=== PATIENT | male | born 1985 | race Caucasian/White ===

== ENCOUNTER 2023-04-23 17:50 | Emergency (ER) | payer BC, SELFPAY ==
[2023-04-23] VITALS (12 sets, daily range): BP systolic 126–166; BP diastolic 84–90; PULSE 88–106; RESP 13–23; TEMP 36.6; O2SAT 97–100
--- NOTE | 2023-04-23 19:21 | PC.NURSE ---
This RN took patient report from MITUL Mahoney. This RN assumed care of patient.
--- NOTE | 2023-04-23 19:57 | ED.ALLEREA ---
HPI - Allergic Reaction General Chief complaint: Allergic Reaction Stated complaint: hives Time Seen by Provider: 04/23/23 19:51 Source: patient and family Mode of arrival: ambulatory Limitations: no limitations History of Present Illness HPI narrative: 37 years old white male came to the ED with itching hives started in the morning, gets better with Benadryl then back again. Last Benadryl was 6 hours ago. History of intermittent skin rash of unknown etiology. 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 He denies any difficulty breathing or swallowing. Related Data Allergies Allergy/AdvReac Type Severity Reaction Status Date / Time No Known Allergies Allergy Verified 04/23/23 18:19 Review of Systems Review of Systems: All systems reviewed & are unremarkable except as noted in HPI and below Exam Narrative: General appearance: Well-developed, well-nourished Skin: Hives, scattered follow-up Head: Normocephalic, nontraumatic Eyes: Clear conjunctiva ENT: Oropharynx normal, ears normal, nose normal Neck: Supple, nontender Chest and respiratory: Airway patent, no respiratory distress, no accessory muscle use Heart: Regular rate/rhythm Abdomen: Soft, nontender, no organomegaly, quiet bowel sounds Vascular: Normal peripheral pulses, normal capillary refill. Musculoskeletal: Normal range of motion, nontender back Neurologic: Alert and oriented ?3, [employer] is normal as tested, no gross motor deficit Course Reevaluation(s) Reevaluation #1: Feeling much better after epinephrine Benadryl and prednisone Date: 04/23/23 Time: 20:20 Vital Signs Vital signs: Vital Signs Temperature 36.6 C 04/23/23 17:58 Pulse Rate 106 H 04/23/23 17:58 Respiratory Rate 17 04/23/23 17:58 Blood Pressure 166/90 H 04/23/23 17:58 Pulse Oximetry 99 04/23/23 17:58 Oxygen Delivery Room Air 04/23/23 17:58 Temperature 36.6 C 04/23/23 17:58 Pulse Rate 95 04/23/23 20:31 Respiratory Rate 13 04/23/23 20:31 Blood Pressure 126/84 04/23/23 18:31 Pulse Oximetry 100 04/23/23 20:31 Oxygen Delivery Room Air 04/23/23 18:31 MDM - Allergic Reaction MDM Narrative Medical decision making narrative: Patient presents with itching hives of unknown etiology. Patient had numerous similar symptom in the past for juncture. In the ED patient received epinephrine, Benadryl, prednisone with remarkable improvement. Patient will be discharged on prednisone and Zyrtec. Differential Diagnosis Differential diagnosis: Likely allergic reaction and contact dermatitis Medical Records Attestation: I reviewed the patient's medical records. Critical Care Time Critical Care Time Critical Care Time: Yes Total Critical Care Time: 10 Discharge Plan Discharge Clinical Impression: Urticaria Patient Disposition: Home, Self-Care Condition: Improved Instructions: Acute Rash (ED) Additional Instructions: Return if symptoms are worsening , call your family physician for appointment, take Tylenol as as needed for aches and pain, continue home medications. Prescriptions: New prednisone 20 mg tablet 40 mg PO DAILY 5 Days Qty: 10 0RF Zyrtec 10 mg capsule 10 mg PO BID PRN (Reason: allergy symptoms) Qty: 20 0RF Follow-up/Referrals: Chidi Valentine MD [Physician] -
[2023-04-23] MEDS: diphenhydrAMINE HCl INJ 50 MG/ML VIAL IV PUSH (20:07)
[2023-04-23] MEDS: EPINEPHrine HCL INJ 1 MG/ML AMPUL 0.3 MG IM (20:08)
[2023-04-23] MEDS: methylPREDNISolone SOD SUCC 125 MG VIAL IV PUSH (20:14)
== END 2023-04-23 21:02 | disposition home or self-care (01) ==
PROVIDERS: Emergency Provider Emergency Medicine
DX: L50.9 Urticaria, unspecified (principal)
CPT/HCPCS: 96372; 96374; 96375; 99284; J0171; J1200; J2930